=== PATIENT | female | born 1945 | race Caucasian/White ===

== ENCOUNTER 2020-08-21 14:28 | Inpatient (IN) | payer OTHER ==
[2020-08-21 16:21] LABS: Basophils % 0.5 % (0-1.3); Hematocrit 42.1 % (36.0-45.0); MPV 8.2 fL (7.6-11.3); RBC Red Blood Cell Count 5.03 M/uL (3.86-4.86)
[2020-08-21 16:27] LABS: Protime INR 1.21
--- NOTE | 2020-08-21 16:37 | RAD REPORT ---
EXAM DESCRIPTION: RAD - Chest Single View - 08/21/2020 4:01 pm CLINICAL HISTORY: SOB, hypertension COMPARISON: None TECHNIQUE: AP portable chest image was obtained 08/21/2020 4:01 pm . FINDINGS: No focal mass or consolidation. Interstitial markings are prominent throughout both lung f ields with vascular engorgement. Cardiomegaly is present. Trachea is midline. No measurable pleural e ffusion and no pneumothorax. No acute bony abnormality seen. No acute aortic findings. Asymmetric mayo st soft tissues are present suggesting left mastectomy. IMPRESSION: Heart, vasculature and lung markings are all prominent suggesting a mild failure or volu me overload. No focal mass or consolidation.
[2020-08-21 16:39] LABS: Albumin 4.2 g/dL (3.4-5.0); Bilirubin Direct 0.3 mg/dL (0-0.2); Bilirubin Total 0.9 mg/dL (0.2-1.0); Magnesium 2.2 mg/dL (1.8-2.4); Potassium 3.9 mmol/L (3.5-5.1); Protein, Total 8.5 g/dL (6.4-8.2); Troponin (Emerg Dept Use Only) 0.06 ng/mL (0.0-0.045)
[2020-08-21] MEDS ORDERED: FUROSEMIDE 40 MG/4 ML VIAL ONE (16:45)
[2020-08-21] MEDS ORDERED: LABETALOL 20 MG/4ML SYRINGE IV ONE (16:58)
--- NOTE | 2020-08-21 17:55 | EDPHYS ---
Physician Documentation [facility] Name: Summer Reddy Age: 75 yrs Sex: Female : 1945 Arrival Date: 08/21/2020 Time: 14:33 Bed 2 Private MD: ED Physician Nata Santamaria HPI: 08/21 16:09 This 75 yrs old Female presents to ER via Ambulatory with complaints of pm1 Shortness Of Breath, High Blood Pressure. 16:09 The patient has shortness of breath at rest. Onset: The symptoms/episode began/occurred pm1 3 months ago but worse the past 1 week. Duration: The symptoms are continuous. The patient's shortness of breath is aggravated by light activity, is alleviated by nothing. Associated signs and symptoms: Pertinent positives: lower extremity edema. Severity of symptoms: in the emergency department the symptoms are worse Pain is currently a 0 / 10. The patient has not experienced similar symptoms in the past. The patient has been recently seen by a physician: the patient's primary care provider, Dr. Holland earlier today, with similar presenting complaints, and was sent to the [facility] Emergency Department for further evaluation. Patient has not taken her prescribed blood pressure medications for 3 years. Historical: - Allergies: 15:26 No Known Allergies; em - PMHx: 15:26 Hypertension; em - PSHx: 15:26 Mastectomy, Left; Mastectomy, Right; Hysterectomy; Tonsillectomy; em - Immunization history:: Adult Immunizations up to date. - Social history:: Smoking status: Patient denies any tobacco usage or history of. ROS: 16:09 Constitutional: Negative for fever, chills, and weight loss. pm1 16:09 Back: Negative for injury and pain, : Negative for injury, bleeding, discharge, and swelling, MS/Extremity: Negative for injury and deformity, Skin: Negative for injury, rash, and discoloration, Neuro: Negative for headache, weakness, numbness, tingling, and seizure. 16:09 Cardiovascular: Positive for edema, orthopnea, palpitations, Negative for chest pain. 16:09 Respiratory: Positive for shortness of breath. 16:09 Abdomen/GI: Positive for abdominal distension, Negative for abdominal pain, nausea, vomiting, and diarrhea. Exam: 16:09 Constitutional: This is a well developed, well nourished patient who is awake, alert, pm1 and in no acute distress. Head/Face: Normocephalic, atraumatic. 16:09 Back: No spinal tenderness. No costovertebral tenderness. Full range of motion. Skin: Warm, dry with normal turgor. Normal color with no rashes, no lesions, and no evidence of cellulitis. MS/ Extremity: Pulses equal, no cyanosis. Neurovascular intact. Full, normal range of motion. 16:09 Cardiovascular: Rate: tachycardic, actual rate is 115 bpm, Rhythm: regular, Pulses: no pulse deficits are appreciated, Edema: 3+ edema to level of left and right lower extrermity below the knees. 16:09 Respiratory: the patient does not display signs of respiratory distress, Breath sounds: decreased breath sounds, are located in both bases. 16:09 Abdomen/GI: Inspection: obese Palpation: abdomen is soft and non-tender, in all quadrants. 16:09 Neuro: Exam negative for acute changes, Orientation: is normal, Mentation: is normal, Motor: is normal, moves all fours. Vital Signs: 15:20 Pulse 115; Resp 18; Temp 97.8; Pulse Ox 99% on R/A; Weight 104.33 kg; Height 5 ft. 7 em in. (170.18 cm); Pain 0/10; 15:26 BP 206 / 131; em 16:45 BP 154 / 93; Pulse 82; Resp 22; Pulse Ox 94% on 3 lpm NC; hb 17:45 BP 148 / 98; Pulse 91; Resp 29; Pulse Ox 94% on 3 lpm NC; hb 19:15 BP 161 / 94; Pulse 87; Resp 25; Pulse Ox 95% on 3 lpm NC; hb 15:20 Body Mass Index 36.02 (104.33 kg, 170.18 cm) em MDM: 15:37 Patient medically screened. pm1 17:39 Counseling: I had a detailed discussion with the patient and/or guardian regarding: the pm1 historical points, exam findings, and any diagnostic results supporting the discharge/admit diagnosis, lab results, radiology results, the need for further work-up and treatment in the hospital. 17:48 Data reviewed: vital signs. pm1 18:37 Physician consultation: Tad Holland MD was called at 17:46, was contacted at 18:37, pm1 regarding admission, patient's condition, and will see patient. 08/21 15:44 Order name: Basic Metabolic Panel; Complete Time: 16:47 pm1 08/21 15:44 Order name: CBC with Diff; Complete Time: 16:34 pm1 08/21 15:44 Order name: LFT's; Complete Time: 16:47 pm1 08/21 15:44 Order name: Magnesium; Complete Time: 16:47 pm1 08/21 15:44 Order name: NT PRO-BNP; Complete Time: 16:47 pm1 08/21 15:44 Order name: PT-INR; Complete Time: 16:47 pm1 08/21 15:44 Order name: Troponin (emerg Dept Use Only); Complete Time: 16:47 pm1 08/21 15:44 Order name: XRAY Chest (1 view); Complete Time: 16:47 pm1 08/21 15:44 Order name: EKG; Complete Time: 15:44 pm1 08/21 15:56 Order name: COVID-19 : Document "Date of Symptom Onset" if Symptomatic. pm1 08/21 17:49 Order name: SARS-COV-2 RT PCR; Complete Time: 17:55 EDMS 08/21 15:44 Order name: Cardiac monitoring; Complete Time: 16:22 pm1 08/21 15:44 Order name: EKG - Nurse/Tech; Complete Time: 16:22 pm1 08/21 15:44 Order name: IV Saline Lock; Complete Time: 16:22 pm1 08/21 15:44 Order name: Labs collected and sent; Complete Time: 16:22 pm1 08/21 15:44 Order name: O2 Per Protocol; Complete Time: 16:22 pm08/21 15:44 Order name: O2 Sat Monitoring; Complete Time: 16:22 pm1 Administered Medications: 16:37 Drug: Lasix (furosemide) 40 mg Route: IVP; Site: right antecubital; hb 16:42 Drug: Labetalol 20 mg Route: IVP; Infused Over: 2 mins; Site: right antecubital; hb Disposition: 08/21/20 17:54 Hospitalization ordered by Tad Holland for Inpatient Admission. Preliminary diagnosis are Congestive heart failure - new onset, Dyspnea - volume overload. - Bed requested for Telemetry/MedSurg (Inpatient). - Status is Inpatient Admission. hb - Condition is Stable. - Problem is new. - Symptoms have improved. Addendum: 08/24/2020 06:12 Co-signature as Attending Physician, Nata Santamaria MD. m a2 Signatures: Dispatcher [employer] EDPR Antonia Arroyo Shant Martino, RN RN em Shawn Amaral, ANALYST ANALYST pm1 Ofe Anders RN RN Nata Santamaria MD MD ma2 Corrections: (The following items were deleted from the chart) 08/21 16:55 15:57 CORONAVIRUS ordered. EDPR EDPR 18:37 17:54 Hospitalization Ordered by Tad Holland MD for Inpatient Admission. Preliminary bd diagnosis is Congestive heart failure - new onset; Dyspnea - volume overload. Bed requested for Telemetry/MedSurg (Inpatient). Status is Inpatient Admission. Condition is Stable. Problem is new. Symptoms have improved. pm1 19:39 18:37 08/21/2020 17:54 Hospitalization Ordered by Tad Holland MD for Inpatient hb Admission. Preliminary diagnosis is Congestive heart failure - new onset; Dyspnea - volume overload. Bed requested for Telemetry/MedSurg (Inpatient). Status is Inpatient Admission. Condition is Stable. Problem is new. Symptoms have improved. bd
--- NOTE | 2020-08-21 17:55 | ER ---
Nurse's Notes [facility] Name: Summer Reddy Age: 75 yrs Sex: Female : 1945 Arrival Date: 08/21/2020 Time: 14:33 Bed 2 Private MD: Diagnosis: Congestive heart failure - new onset;Dyspnea-volume overload Presentation: 08/21 15:20 Chief complaint: Patient states: was at the Dr. office today and was told to come to em the ED for high BP, 200s/100s and was told may have AFIB, denies chest pain or N/V/D, also reports leg swelling and shortness of breath. Coronavirus screen: Client denies travel out of the [place] in the last 14 days. Ebola Screen: Patient negative for fever greater than or equal to 101.5 degrees Fahrenheit, and additional compatible Ebola Virus Disease symptoms Patient denies exposure to infectious person. Patient denies travel to an Ebola-affected area in the 21 days before illness onset. No symptoms or risks identified at this time. Initial Sepsis Screen: Does the patient meet any 2 criteria? No. Patient's initial sepsis screen is negative. Does the patient have a suspected source of infection? No. Patient's initial sepsis screen is negative. Risk Assessment: Do you want to hurt yourself or someone else? Patient reports no desire to harm self or others. Onset of symptoms was August 21, 2020. 15:20 Method Of Arrival: Ambulatory em 15:20 Acuity: JOEY 2 em Historical: - Allergies: 15:26 No Known Allergies; em - PMHx: 15:26 Hypertension; em - PSHx: 15:26 Mastectomy, Left; Mastectomy, Right; Hysterectomy; Tonsillectomy; em - Immunization history:: Adult Immunizations up to date. - Social history:: Smoking status: Patient denies any tobacco usage or history of. Screenin:17 Abuse screen: Denies threats or abuse. Denies injuries from another. Nutritional hb screening: No deficits noted. Tuberculosis screening: No symptoms or risk factors identified. Fall Risk None identified. Assessment: 16:20 General: Appears distressed, Behavior is agitated. Pain: Denies pain. Neuro: Level of hb Consciousness is awake, alert, obeys commands, Oriented to person, place, time, situation. Cardiovascular: Patient's skin is warm and dry. Rhythm is sinus tachycardia. Respiratory: Reports shortness of breath at rest on exertion Airway is patent Respiratory effort is labored, Respiratory pattern is tachypnea. GI: Reports bloating. : No signs and/or symptoms were reported regarding the genitourinary system. EENT: No signs and/or symptoms were reported regarding the EENT system. Derm: Skin is pink, warm \\T\\ dry. Musculoskeletal: No signs and/or symptoms reported regarding the musculoskeletal system. 17:30 Reassessment: Patient appears in no apparent distress at this time. Patient and/or hb family updated on plan of care and expected duration. Pain level reassessed. Patient is alert, oriented x 3, equal unlabored respirations, skin warm/dry/pink. 18:30 Reassessment: Patient appears in no apparent distress at this time. Patient and/or hb family updated on plan of care and expected duration. Pain level reassessed. Patient is alert, oriented x 3, equal unlabored respirations, skin warm/dry/pink. 19:22 Reassessment: Patient appears in no apparent distress at this time. Patient and/or hb family updated on plan of care and expected duration. Pain level reassessed. Patient is alert, oriented x 3, equal unlabored respirations, skin warm/dry/pink. Vital Signs: 15:20 Pulse 115; Resp 18; Temp 97.8; Pulse Ox 99% on R/A; Weight 104.33 kg; Height 5 ft. 7 em in. (170.18 cm); Pain 0/10; 15:26 BP 206 / 131; em 16:45 BP 154 / 93; Pulse 82; Resp 22; Pulse Ox 94% on 3 lpm NC; hb 17:45 BP 148 / 98; Pulse 91; Resp 29; Pulse Ox 94% on 3 lpm NC; hb 19:15 BP 161 / 94; Pulse 87; Resp 25; Pulse Ox 95% on 3 lpm NC; hb 15:20 Body Mass Index 36.02 (104.33 kg, 170.18 cm) em ED Course: 14:33 Patient arrived in ED. mr 15:24 Triage completed. em 15:37 Shawn Amaral NP is PHCP. pm1 15:37 Nata Santamaria MD is Attending Physician. pm1 16:00 XRAY Chest (1 view) In Process Unspecified. EDMS 16:12 Inserted saline lock: 22 gauge in right antecubital area, using aseptic technique. hb Blood collected. 16:17 Ofe Anders RN is Primary Nurse. hb 16:17 Arm band placed on. hb 16:17 Patient has correct armband on for positive identification. Call light in reach. Side hb rails up X 1. 16:54 COVID-19 : Document "Date of Symptom Onset" if Symptomatic. Sent. hb 17:54 Tad Holland MD is Hospitalizing Provider. pm1 19:16 Primary Nurse role handed off by Ofe Anders, RN mw2 Administered Medications: 16:37 Drug: Lasix (furosemide) 40 mg Route: IVP; Site: right antecubital; hb 16:42 Drug: Labetalol 20 mg Route: IVP; Infused Over: 2 mins; Site: right antecubital; hb Outcome: 17:54 Decision to Hospitalize by Provider. pm1 19:39 Patient left the ED. hb Signatures: Dispatcher [employer] EDWA Ana Cristina Krishnamurthy Edgar, RN Shawn Lucero, CARLOS FIELD MANAGER pm1 Ofe Anders, NASIR RN Mario Magana mw2
[2020-08-21] MEDS ORDERED: ALBUTEROL 2.5 MG/3 ML NEB SOL NEB PRN (19:32)
[2020-08-21] MEDS ORDERED: IPRATROPIUM BROM 0.5MG/2.5ML NEB PRN (19:32)
[2020-08-21 22:59] VITALS: BMI 34.9
[2020-08-22 06:03] LABS: Absolute Lymphocytes (CBC) 1.5 K/uL (0.7-4.9); Basophils % 0.5 % (0-1.3); Hematocrit 37.4 % (36.0-45.0); MPV 8.3 fL (7.6-11.3); RBC Red Blood Cell Count 4.51 M/uL (3.86-4.86)
[2020-08-22 06:22] LABS: Potassium 3.6 mmol/L (3.5-5.1)
[2020-08-22] MEDS: FUROSEMIDE 20 MG/ 2ML VIAL IV SCH ×2 (08:28→16:56)
--- NOTE | 2020-08-22 11:19 | EKG ---
Test Date: 2020-08-21 Test Time: 16:02:29 Computer Architect: HB MEASUREMENT RESULTS: Intervals: Rate: 112 MD: 168 QRSD: 96 QT: 346 QTc: 472 [place]: P: 81 MD: 168 QRS: -22 T: 80 INTERPRETIVE STATEMENTS: Sinus tachycardia Nonspecific T wave abnormality Abnormal ECG No previous ECG available for comparison Electronically Signed On 08-22-20 11:17:12 CDT by Carroll Miranda
--- NOTE | 2020-08-22 12:25 | ECHO ---
HEIGHT: 5 ft 7.5 in WEIGHT: 226 lb 3.2 oz DATE OF STUDY: 08/22/[address]: Shawn Amaral NP 2-DIMENSIONAL: YES M.MODE: YES DOPPLER: YES COLOR FLOW: YES TDS: PORTABLE: DEFINITY: BUBBLE STUDY: DIAGNOSIS: NEW ONSET CONGESTIVE HEART FAILURE CARDIAC HISTORY: CATHERIZATION: NO SURGERY: NO PROSTHETIC VALVE: NO PACEMAKER: NO MEASUREMENTS (cm) DIASTOLIC (NORMALS) SYSTOLIC (NORMALS) IVSd 1.3 (0.6-1.2) LA Diam 3.7 (1.9-4.0) LVEF 40-45% LVIDd 5.0 (3.5-5.7) LVIDs 3.6 (2.0-3.5) %FS % LVPWd 1.2 (0.6-1.2) Ao Diam 2.8 (2.0-3.7) 2 DIMENSIONAL ASSESSMENT: RIGHT ATRIUM: NORMAL LEFT ATRIUM: NORMAL RIGHT VENTRICLE: NORMAL LEFT VENTRICLE: NORMAL TRICUSPID VALVE: NORMAL MITRAL VALVE: NORMAL PULMONIC VALVE: NORMAL AORTIC VALVE: NORMAL PERICARDIAL EFFUSION: NONE AORTIC ROOT: NORMAL LEFT VENTRICULAR WALL MOTION: MILD GLOBAL HYPOKINESIS DOPPLER/COLOR FLOW: COMMENTS: MILD GLOBAL HYPOKINESIS. EJECTION FRACTION 40-45%. NO EFFUSION. TECHNOLOGIST: TIANNA KATZ
[2020-08-22] MEDS: lisinopriL 20 MG TAB PO SCH (12:33)
[2020-08-22] MEDS: ENOXAPARIN 60 MG/0.6 ML SQ SCH (12:34)
[2020-08-22] MEDS: METOPROLOL TAR 25 MG TAB PO SCH (16:56)
--- NOTE | 2020-08-22 22:08 | HP ---
Date of Admission: 08/21/2020 History Of Present Illness: 75-year-old female, who is new to me as a patient have not seen her befo re. However, she gave history that she has been having gradual increased shortness of breath for at least the past 3-4 months. She also noted some swelling in her legs on both sides being getting fati gued and tired, presented to the emergency room with that complaint. The patient was found to be in congestive heart failure exacerbation and we went ahead and admitted her for that. The patient denie d any chest pain and no fever, no chills and voiced no other complaints. Review of Systems: Respiratory: As above. Cardiovascular: No complaints. Genitourinary: No complaints. Skeletomuscular: No complaint. Gastrointestinal: No complaint. Neurological: No complaint. Past Medical History: She has history of hyper blood pressure but has not been taking any medication for that. Other than this, she denies any other chronic illnesses, diabetes, or any other medicatio ns or operations. Social History: No smoking, alcohol, or drug abuse history. Family History: Noncontributing. Medications: She was taking none. Allergies: NO KNOWN DRUG ALLERGIES. Physical Examination: General: The patient is sitting in no acute distress. Vital Signs: However, she was showing a little bit of increased respiratory rate about 20, blood pre ssure was 173/94, pulse was 95. Heart: Tachycardic, regular rate. Chest: Mild bilateral crackles clear to auscultation. Abdomen: Soft, nontender, no hepatosplenomegaly. Bowel sounds are normoactive. Extremities: Bilateral 1+ pitting edema, pedal and tibial. Neurological: Alert, oriented, nonfocal. Grossly intact. Diagnostic Data: Chest x-ray showed increased cardiopulmonary markings consistent with CHF and CBC n oted. Chemistry significant for glucose 146 and 143 and her troponin was 0.06, 0.08, and 0.07. BNP 7067, initially was 5825. Assessment And Plan: 1.Shortness of breath with congestive heart failure. The patient is being admitted for best bedrest , salt restriction and we will check her cardiac echo and have put her on IV Lasix. 2.Hypertension. We will start the patient on lisinopril 20 mg daily. 3.Increased troponin. The patient was on cardiac telemetry. Her EKG showed sinus tachycardia at th e time of admission. I have asked Cardiology to consult on the patient for that. 4.We are going to go ahead and check the patient A1c because of increased fasting blood sugar and al so will check her lipid profile. We will put her on Lovenox prophylaxis and will repeat the rest of her labs. Look orders for details. ALAN/AVA Voice ID: [id number]
[2020-08-23 01:30] VITALS: O2SAT 94
[2020-08-23] MEDS: METOPROLOL TAR 25 MG TAB PO SCH (05:55)
[2020-08-23] MEDS: lisinopriL 20 MG TAB PO SCH (08:53)
[2020-08-23] MEDS: ENOXAPARIN 60 MG/0.6 ML SQ SCH (08:54)
[2020-08-23 08:55] VITALS: BP 173/96
[2020-08-23] MEDS: FUROSEMIDE 20 MG/ 2ML VIAL IV SCH (08:55)
[2020-08-23 11:03] VITALS: TEMP 98.4
--- NOTE | 2020-08-24 00:22 | CON ---
Date of Consultation: 08/22/2020 Reason For Consultation: New onset congestive heart failure. History Of Present Illness: Ms. Reddy is a 75-year-old woman with history of hypertension. She is s tatus post mastectomy. No previous cardiac history. Comes in with PND, orthopnea, pedal edema, was found to have congestive heart failure on x-ray. Troponin was 0.07. BNP was 7067. The patient darby ed any chest pain, nausea, vomiting, diaphoresis. Denies palpitations or syncope. Denies fever or c hills. She has already improved on Lasix. Past Medical History: As stated above. Allergies: NONE. Medications: None. Review of Systems: Negative. Social History: Negative. Family History: Noncontributory. Physical Examination: Vital Signs: When I saw her, her blood pressure was 173/94, sinus rhythm. HEENT: Negative. Neck: Supple. No bruit. Chest: Reveals rales at both bases. Cardiac: Exam revealed a regular rhythm and rate with an S4 gallop. Abdomen: Benign. Extremities: Revealed 1+ edema. Diagnostic Data: As stated earlier. Impression And Plan: Acute congestive heart failure. Echocardiogram showed an ejection fraction of 40%, so this is an acute systolic congestive heart failure. The patient should be on beta blockers, MORE inhibitors, Lasix, aspirin. She needs to watch her salt intake, her I's and O's and her daily we ight. I will see her in the office in the next 2 weeks. At that time, I think she needs to have a L exiscan to rule out coronary artery disease. I will discuss the case further with Dr. Holland. JESS/AVA Voice ID: [id number] Report ID: [id number]
== END 2020-08-23 13:29 | disposition home or self-care (01) | DRG 291 ==
LOC: ER 14:28 → ERHOLD 18:21 → 2ND 19:25
PROVIDERS: ADMIT Internal Medicine; ATTEND Internal Medicine
DX: I11.0 Hypertensive heart disease with heart failure (principal); I50.21 Acute systolic (congestive) heart failure; R00.0 Tachycardia, unspecified; Z90.710 Acquired absence of both cervix and uterus; Z90.13 Acquired absence of bilateral breasts and nipples; Z20.822 Contact with and (suspected) exposure to COVID-19
CPT/HCPCS: 36415; 71045; 80048; 80076; 83036; 83735; 83880; 84484; 85025; 85610; 93005; 93306; 96374; 96375; 99284; J1650; J1940; U0003